=== PATIENT | female | born 1985 | race Two or more races ===

== ENCOUNTER 2024-11-08 16:59 | Emergency (ER) | payer OTHER ==
[~2024-11-08] VITALS: Ht 154.9 cm; Wt 69.9 kg
[2024-11-08] MEDS ORDERED: FAMOTIDINE/PF 20 MG in 0.9 % SODIUM CHLORIDE 8 ML IV PUSH STA (18:08)
[2024-11-08] MEDS ORDERED: 0.9 % SODIUM CHLORIDE 1,000 ML IV SCH (18:15)
[2024-11-08] MEDS ORDERED: METOCLOPRAMIDE HCL 10 MG in DEXTROSE 5 % IN WATER 50 ML IV ONE (18:15)
[2024-11-08] MEDS ORDERED: FAMOTIDINE/PF 20 MG/2 ML VIAL ONE (18:28)
[2024-11-08] MEDS ORDERED: METOCLOPRAMIDE HCL 5 MG/ML VIAL ONE (18:28)
[2024-11-08 18:35] LABS: BASO % 0.6 % (0.1-1.2); EOS # 0.09 (0.04-0.54); EOS % 0.8 % (0.7-7.0); LYMPH # 3.17 (1.18-3.74); LYMPH % 28.4 % (19.3-53.1); MEAN PLATELET VOLUME 9.30 fl (9.4-12.4); MONO # 0.61 (0.24-0.82); MONO % 5.5 % (4.7-12.5); NEUT # 7.16 (1.56-6.13); NEUT % 64.3 % (34.0-71.1); RED CELL DISTRIBUTION WIDTH 13.0 % (11.6-14.4)
[2024-11-08 19:29] LABS: ALT/SGPT 17.0 U/L (12-78); AST/SGOT 10.0 U/L (15-37); BILIRUBIN TOTAL 0.35 mg/dL (0.3-1.2); BUN CREA RATIO 18.0 (7.0-25.0); CREATININE SERUM 0.55 mg/dL (0.55-1.02); GFR 123.7; GLOBULINA 3.8 G/DL (2.4-3.5); GLUCOSE FASTING 84.0 mg/dL (65-100); OSMOLALITY SERUM 276.0 MOSM/KG (275-295)
[2024-11-08 19:32] LABS: HCG QUANTITATIVE 28081.0 mUI/mL (1-3)
[2024-11-08] MEDS ORDERED: PEPCID20 MG PO (20:57)
[2024-11-08] MEDS ORDERED: ONDANSETRON ODT8 MG PO (20:57)
== END 2024-11-08 21:30 | disposition home or self-care (01) ==
LOC: ER 16:59
PROVIDERS: General Practice
DX: Z33.1 Pregnant state, incidental (principal); Z3A.01 Less than 8 weeks gestation of pregnancy; K29.70 Gastritis, unspecified, without bleeding; R10.9 Unspecified abdominal pain